=== PATIENT | male | born 1960 | race Caucasian/White ===

== ENCOUNTER 2020-01-27 10:12 | Inpatient (IN) | payer OTHER, SELFPAY ==
[~2020-01-27 10:12] MED LIST: Iopamidol-370 76% 500 ML 1 ML ONE
[2020-01-27] MEDS ORDERED: Ondansetron PF 4 MG/2 ML Vial ONE (10:52)
[2020-01-27 11:33] LABS: #Eosinphils 0.3 thou/uL (0.0-0.7); #Lymphocytes 1.5 thou/uL (1.20-3.40); #Monocytes 0.9 thou/uL (0.11-0.59); #Neutrophils 5.6 thou/uL (1.40-6.50); %Basophils 0.3 % (0.0-1.0); %Eosinophils 3.8 % (0.0-10.0); %Lymphocytes 18.2 % (21.0-51.0); %Monocytes 10.9 % (0.0-10.0); %Neutrophils 66.7 % (42.0-75.0); Hemoglobin 10.8 g/dL (14.0-18.0); Mean Corpuscular HGB CONC 31.1 g/dL (32.0-36.0); Mean Corpuscular Hemoglobin 28.3 pg (27.0-31.0); Mean Corpuscular Volume 90.9 fL (78.0-98.0); Mean Platelet Volume 8.1 fL (7.4-10.4); Platelet Count 362 thou/uL (130-400); RBC Distribution Width 14.3 % (11.5-14.5); Red Blood Cell (RBC) Count 3.83 mill/uL (4.70-6.10); White Blood Cell (WBC) Count 8.4 thou/uL (4.8-10.8)
--- NOTE | 2020-01-27 11:38 | RAD ---
CHEST 1 VIEW: Date: 01/27/2020 INDICATION: History of diarrhea. FINDINGS: Lungs are clear. There are vascular calcifications involving the aortic arch. No pleural effusion or pneumothorax evident. No acute osseous abnormality is evident. IMPRESSION: No acute cardiopulmonary abnormality. POS: BH
[2020-01-27 12:31] LABS: ALT (SGPT) 53 U/L (8-55); AST (SGOT) 35 U/L (5-34); Albumin 3.3 g/dL (3.5-5.0); Alkaline Phosphatase 72 U/L (40-110); Anion Gap 16 mmol/L (10-20); BUN (Urea Nitrogen) 42 mg/dL (8.4-25.7); Bilirubin, Total 0.5 mg/dL (0.2-1.2); Calc. Creatinine Clearance 0 mL/min (70-130); Calcium 9.2 mg/dL (7.8-10.44); Carbon Dioxide 22 mmol/L (22-29); Chloride 106 mmol/L (98-107); Estimated GFR-MDRD 58; Globulin 3.9 g/dL (2.4-3.5); Glucose 164 mg/dL (70-105); Potassium 4.7 mmol/L (3.5-5.1); Protein, Total 7.2 g/dL (6.0-8.3); Sodium 139 mmol/L (136-145)
--- NOTE | 2020-01-27 13:10 | PDOC.FPRHP ---
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 He traveled from [place] to move in with niece over the last two days. He reports eating hot dog from convenient store and some beans that made him feel uneasy. Otherwise, no change in diet. Dizziness onset noticed upon standing, reports improvement since IVF here but still present. He denies fever , abd pain, hematochezia, melena. He reports 1 episode of n/v. Of note, he has R sided gaze, since CVA and reports possible worsening today but niece reports at baseline. ED Course: Patient received 30mg/kg bolus NS and 4mg Zofran in the ED. - History PMHx: Hep C, HTN, Peptic Ulcer, Hx of CVA, Hx of IV drug use and alcoholism PSHx: L shoulder FHx: non-contributory Social: denies current tobacco use, alcohol use, and drug use. Hx of IV drug use and alcohol abuse. Currently living with niece. Recently discharged from SNF after CVA and COVID19 admission in [place]. - Review of Systems General: denies: fever/chills Eyes: reports: vision changes. denies: eye pain ENT: denies: nasal congestion, rhinorrhea Respiratory: reports: shortness of breath (at baseline). denies: cough, congestion, exercise intolerance Cardiovascular: denies: chest pain, palpitation, edema, paroxysmal nocturnal dyspnea Gastrointestinal: reports: nausea, vomiting, diarrhea. denies: constipation, abdominal pain, GI bleeding Genitourinary: denies: incontinence, dysuria, polyuria Skin: denies: rashes, lesions Musculoskeletal: denies: pain, tenderness, stiffness Neurological: reports: numbness (at baseline). denies: syncope, weakness Psychological: denies: anxiety, depression - Vital signs BP 89/46, MAP 60, repeat in room 120/89, P69, R12, T97.4, O2 95%RA, Wt 79kg - Physical Exam Constitutional: NAD, awake, alert and oriented, well developed HEENT: normocephalic and atraumatic -HEENT: R sided gaze, EOM impaired, dry MM Neck: supple, no LAD Chest: no-tender to palpation, no lesions Heart: RRR, normal S1/S2, no murmurs/rubs/gallops, pulses present, no edema Lungs: CTAB, no respiratory distress, good air movement Abdomen: soft, non-tender, bowel sounds present, no masses/distention -Abdomen: hyperactive BS Musculoskeletal: normal structure -Neurological: L sided decreased sensation in UE and LE, RLE 4/5 sterngth, otherwise all other extremities 5/5 Skin: no rash/lesions, good turgor Heme/Lymphatic: no unusual bruising or bleeding Psychiatric: normal mood and affect FMR H&P: Results - Labs Result Diagrams: 01/28/20 05:05 01/28/20 05:05 Lab results: WBC 8.4 thou/uL (4.8-10.8) 01/27/20 10:35 Hgb 10.8 g/dL (14.0-18.0) L 01/27/20 10:35 Hct 34.8 % (42.0-52.0) L 01/27/20 10:35 MCV 90.9 fL (78.0-98.0) 01/27/20 10:35 Plt Count 362 thou/uL (130-400) 01/27/20 10:35 Neutrophils % 66.7 % (42.0-75.0) 01/27/20 10:35 Sodium 139 mmol/L (136-145) 01/27/20 10:35 Potassium 4.7 mmol/L (3.5-5.1) 01/27/20 10:35 Chloride 106 mmol/L (98-107) 01/27/20 10:35 Carbon Dioxide 22 mmol/L (22-29) 01/27/20 10:35 BUN 42 mg/dL (8.4-25.7) H 01/27/20 10:35 Creatinine 1.27 mg/dL (0.7-1.3) 01/27/20 10:35 Glucose 164 mg/dL (70-105) H 01/27/20 10:35 Lactic Acid 4.0 mmol/L (0.5-2.2) H 01/27/20 10:35 Calcium 9.2 mg/dL (7.8-10.44) 01/27/20 10:35 Total Bilirubin 0.5 mg/dL (0.2-1.2) 01/27/20 10:35 AST 35 U/L (5-34) H 01/27/20 10:35 ALT 53 U/L (8-55) 01/27/20 10:35 Alkaline Phosphatase 72 U/L (40-110) 01/27/20 10:35 Serum Total Protein 7.2 g/dL (6.0-8.3) 01/27/20 10:35 Albumin 3.3 g/dL (3.5-5.0) L 01/27/20 10:35 - Radiology Interpretation CT scan - abdomen Status: image reviewed by me, report reviewed by me (No acute findings) Chest x-ray Status: image reviewed by me, report reviewed by me (no acute findings) FMR H&P: A/P - Problem List (1) Severe dehydration Current Visit: Yes Status: Acute Code(s): E86.0 - DEHYDRATION (2) Lactic acidosis Current Visit: Yes Status: Acute Code(s): E87.2 - ACIDOSIS (3) Hepatitis C Current Visit: Yes Status: Acute Code(s): B19.20 - UNSPECIFIED VIRAL HEPATITIS C WITHOUT HEPATIC COMA (4) HTN (hypertension) Current Visit: Yes Status: Acute Code(s): I10 - ESSENTIAL (PRIMARY) HYPERTENSION (5) History of CVA (cerebrovascular accident) Current Visit: Yes Status: Acute Code(s): Z86.73 - PRSNL HX OF TIA (TIA), AND CEREB INFRC W/O RESID DEFICITS (6) Normocytic anemia Current Visit: Yes Status: Acute Code(s): D64.9 - ANEMIA, UNSPECIFIED (7) Hyperglycemia Current Visit: Yes Status: Acute Code(s): R73.9 - HYPERGLYCEMIA, UNSPECIFIED - Plan Severe Dehydration 2/2 Diarrheal Illness with Lactic Acidosis: -no s/sx of sepsis at this point. WBC wnl, no fever reported, pulse rate wnl -CT abd wnl -in the process of 30mg/kg bolus in ED, BP improved, will continue to monitor and reassess after IVF complete -LA 4.0, continue to trend -Cdiff toxin and Ag studies collected in ED -additional stool cx pending Hyperglycemia: -unsure of any hx of DM, will continue to trend Normocytic Anemia: -Hgb 10.8 and likely hemoconcentrated d/t hypovolemic state -Fe studies, Folate, B12 and FOBT pending -hx of gastric ulcer 12/02, will give protonix Hx of CVA: -residual EOM deficit, L sided sensation deficit and R sided weakness -daily ASA and plavix -continue statin Chronic Hep C, untreated: -will need outpt f/u HTN: -hold home lisinopril for now with hypotension. Dispo: place in observation, LOS likely <48h DVT PPx: SCDs GI PPx: Protonix Addendum - Attending - Attending Attestation Date/Time: 01/28/20 0810 I personally evaluated the patient and discussed the management with Dr. Deluna. I agree with the History, Examination, Assessment and Plan documented above with any addition or exceptions noted below. See my event note for details.
--- NOTE | 2020-01-27 13:29 | CT ---
CT abdomen and pelvis with IV contrast HISTORY: Abdomen pain. Diarrhea. FINDINGS: Small hiatal hernia. Left liver lobe is diffusely hypodense compared to the right. No evidence of bowel obstruction or inflammation. Stomach is markedly distended with fluid and partic ulate matter. Prominent calcification throughout the arterial structures with likely stenoses at the common iliac a rteries. Inferior most images partially show fluid in the right side of the scrotum. 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 IMPRESSION : No acute bowel abnormalities are demonstrated to explain the symptoms. Small hiatal hernia. Hepato-steatosis. Prominent atherosclerosis. Probable right hydrocele. Bilateral spondylolysis at the lumbosacral junction with minimal spondylolisthesis.
[2020-01-27 14:04] LABS: Bilirubin Negative (Negative); Blood, Urine Negative (Negative); Clarity Clear (Clear); Glucose, Urine (Dipstick) 30 mg/dL (Negative); Leukocyte Negative Leu/uL (Negative); Nitrite Negative (Negative); Protein, Urine (Dipstick) Negative (Neg-Trace); Urobilinogen Normal mg/dL (Less than 2)
--- NOTE | 2020-01-27 16:17 | PDOC.EVN ---
Event Note - Event Note Event Note: Case discussed and reviewed. Recently moved from [place] from rehab facility to live with family and complete home PT. Had AMS this morning and BP was low. Multiple bouts of diarrhea today. Exam unremarkable. Labs show elevated lactic acid. CT negative. Observation for hypotension, volume depletion, and diarrhea. Has received 3L so far. Keep on LR 120 mL/hr. Stool studies pending. Obs, medical, < 2 midnights.
[2020-01-27 17:30] LABS: Lactic Acid 2.8 mmol/L (0.5-2.2)
[2020-01-27] MEDS: Lactated Ringer's 1,000 ML IV SCH (17:40)
[2020-01-27 17:44] LABS: Iron 134 ug/dL (65-175); Iron Binding Capacity, Total 209 mcg/dL (261-462)
[2020-01-28] MEDS: Lactated Ringer's 1,000 ML IV SCH (01:24)
[2020-01-28 05:30] LABS: #Eosinphils 0.1 thou/uL (0.0-0.7); #Lymphocytes 2.3 thou/uL (1.20-3.40); #Neutrophils 4.8 thou/uL (1.40-6.50); %Basophils 0.5 % (0.0-1.0); %Eosinophils 1.5 % (0.0-10.0); %Lymphocytes 27.9 % (21.0-51.0); %Monocytes 12.2 % (0.0-10.0); Hemoglobin 7.4 g/dL (14.0-18.0); Mean Corpuscular HGB CONC 33.4 g/dL (32.0-36.0); Mean Corpuscular Hemoglobin 29.9 pg (27.0-31.0); Mean Corpuscular Volume 89.4 fL (78.0-98.0); Mean Platelet Volume 7.8 fL (7.4-10.4); Platelet Count 253 thou/uL (130-400); RBC Distribution Width 14.2 % (11.5-14.5); Red Blood Cell (RBC) Count 2.47 mill/uL (4.70-6.10); White Blood Cell (WBC) Count 8.3 thou/uL (4.8-10.8)
[2020-01-28 05:48] LABS: Anion Gap 10 mmol/L (10-20); BUN (Urea Nitrogen) 50 mg/dL (8.4-25.7); Calc. Creatinine Clearance 102 mL/min (70-130); Calcium 8.5 mg/dL (7.8-10.44); Carbon Dioxide 25 mmol/L (22-29); Chloride 108 mmol/L (98-107); Estimated GFR-MDRD 90; Glucose 98 mg/dL (70-105); Potassium 4.1 mmol/L (3.5-5.1); Sodium 139 mmol/L (136-145)
--- NOTE | 2020-01-28 07:02 | PDOC.FM ---
- Subjective Subjective: Pt feels better today. He has no had a BM since yesterday. He denies fever, chills. He has discomfort in his throat. This has been on-going for a few days. He denies blood in his BM. He is unsure why he initially had EGD when an ulcer was documented. - Objective Vital Signs & Weight: Vital Signs (12 hours) Temp Pulse Resp BP Pulse Ox 01/28/20 04:00 98.7 F 93 20 109/71 96 01/28/20 03:00 99.5 F 106 H 18 110/63 98 01/27/20 23:41 99.5 F 106 H 20 110/63 98 01/27/20 20:00 98.7 F 102 H 18 120/72 98 Weight Weight 79.152 kg I&O: 01/27/20 01/28/20 01/29/20 06:59 06:59 06:59 Intake Total 1440 Output Total 1300 Balance 140 Result Diagrams: 01/28/20 12:03 01/28/20 05:05 Phys Exam - Physical Examination Constitutional: NAD HEENT: PERRLA, moist MMs Respiratory: no wheezing, clear to auscultation bilateral Cardiovascular: RRR, no significant murmur Gastrointestinal: soft, non-tender, no distention Musculoskeletal: no edema, pulses present Neurological: moves all 4 limbs Psychiatric: normal affect, A&O x 3 Skin: no rash, cap refill <2 seconds Dx/Plan (1) HTN (hypertension) Code(s): I10 - ESSENTIAL (PRIMARY) HYPERTENSION Status: Acute (2) Hepatitis C Code(s): B19.20 - UNSPECIFIED VIRAL HEPATITIS C WITHOUT HEPATIC COMA Status: Acute (3) History of CVA (cerebrovascular accident) Code(s): Z86.73 - PRSNL HX OF TIA (TIA), AND CEREB INFRC W/O RESID DEFICITS Status: Acute (4) Hyperglycemia Code(s): R73.9 - HYPERGLYCEMIA, UNSPECIFIED Status: Acute (5) Lactic acidosis Code(s): E87.2 - ACIDOSIS Status: Acute (6) Normocytic anemia Code(s): D64.9 - ANEMIA, UNSPECIFIED Status: Acute (7) Severe dehydration Code(s): E86.0 - DEHYDRATION Status: Acute - Plan Plan: Normocytic Anemia: -Hgb 7.4 -Fe studies fairly normal, Folate, B12 and FOBT pending. Melenotic appearance to stool on MARC. -hx of gastric ulcer 12/02, will give protonix. Having difficulty swallowing. Possibly 2/2 gastric ulcer. Swallow study pending as well. Will start on iron supplementation. Will need to consider EGD for upper GI bleed. Repeat H/H this afternoon. Severe Dehydration 2/2 Diarrheal Illness with Lactic Acidosis: - vital signs improved, symptoms improved regarding hypotension - pending stool studies - stool was not sent from ER so will need to collect this am. Has not had one since he left the emergency department. Hyperglycemia: -unsure of any hx of DM, will continue to trend Hx of CVA: -residual EOM deficit, L sided sensation deficit and R sided weakness -daily ASA and plavix -continue statin Chronic Hep C, untreated: -will need outpt f/u HTN: -restarted lisinopril Dispo: pending work up but obs for now DVT PPx: SCDs GI PPx: Protonix Diet: NPO Addendum - Attending - Attending Attestation Date/Time: 01/28/20 1559 I personally evaluated the patient and discussed the management with Dr. Preciado. I agree with the History, Examination, Assessment and Plan documented above with any addition or exceptions noted below. repeat H&H <7. Tx 1 u PRBC and call GI.
[2020-01-28] MEDS ORDERED: Multivitamin W/ Minerals 1 TAB PO SCH (09:00)
[2020-01-28] MEDS ORDERED: Lisinopril 5 MG TAB PO SCH (09:00)
[2020-01-28] MEDS ORDERED: Sucralfate 1 GM TAB PO SCH (10:45)
[2020-01-28 12:14] LABS: Hemoglobin 6.8 g/dL (14.0-18.0)
[2020-01-28] MEDS: Sucralfate 1 GM TAB PO SCH ×2 (15:38→17:31)
[2020-01-28] MEDS ORDERED: Atorvastatin Calcium 40 MG TAB PO SCH (21:00)
--- NOTE | 2020-01-28 21:39 | CON ---
DATE OF CONSULTATION: 01/28/2020 CHIEF COMPLAINT: Anemia and weakness. HISTORY OF PRESENT ILLNESS: Mr. Harvey is a 59-year-old man, who had a stroke back in October when he was living up in [place]. He has had residual weakness and was transferred to a senior living/rehab after that. About a week ago, he drove down to [place] to live with his niece for further care. he had an infection with COVID-19, which he recovered from and tested negative twice. He underwent endoscopy and reportedly was found to have a peptic ulcer. However, I do not have confirmation with the procedure report. While he was driving down, he ate a hot dog and felt like it scratched his throat on the way down and since then he has had some discomfort at the lower cervical level while eating. Few days ago, he developed acute diarrhea with multiple liquidy stools per day. He presented to the ER yesterday with dehydration and weakness and dizziness. He has seen no red blood in the stool. He was noted to have some black stools. GI was consulted to evaluate that. PAST MEDICAL HISTORY: Hepatitis C, hypertension, stroke, peptic ulcer, prior history of drug abuse and alcohol abuse. PAST SURGICAL HISTORY: Shoulder surgery and EGD. He has never had a colonoscopy. FAMILY HISTORY: Negative for GI malignancies. SOCIAL HISTORY: No recent alcohol, tobacco, or drugs. He did have a prior history of IV drug abuse and alcohol abuse. ALLERGIES: NO KNOWN DRUG ALLERGIES. MEDICATIONS: Currently include: 1. Multiple vitamin with iron. 2. Atorvastatin. 3. Albuterol. 4. Lisinopril. 5. Pantoprazole. 6. Sucralfate. 7. Prior to admission, he was on clopidogrel and aspirin. REVIEW OF SYSTEMS: Negative x10 systems reviewed except as stated in the history of present illness. PHYSICAL EXAMINATION: VITAL SIGNS: Temperature 97.7, pulse 72, blood pressure 109/69. GENERAL: He is in no acute distress. Alert and oriented x3. Slurs his words to some degree. HEENT: Eyes have no scleral icterus. Oropharynx is clear without lesions. No cervical or supraclavicular lymphadenopathy. LUNGS: Clear to auscultation bilaterally. HEART: Regular rate and rhythm without murmur. ABDOMEN: Soft, nontender, and nondistended. Bowel sounds are present. RECTAL: Reveals firm stool in the rectal vault, however, it is black. EXTREMITIES: No lower extremity edema. LABORATORY DATA: White blood cell count 8.3, hemoglobin 6.8 today down from 10.8 yesterday, platelets 253 . Creatinine 0.87 with a BUN of 50. Iron 134, TIBC 206, ferritin 287, B12 of 502, folate 16.4, bilirubin 0.5, AST 35, ALT 53, alkaline phosphatase 72, albumin 3.3. IMPRESSION: 1. Dehydration and symptomatic anemia on presentation. Some of the drop in his hemoglobin could have been due to rehydration. However, he does have a history of peptic ulcer and on rectal exam, now he has black firm stool. His BUN was significantly elevated compared to his creatinine on presentation, which could also indicate an upper gastrointestinal bleed. His iron studies are most consistent with anemia of chronic disease with a ferritin of 287, iron of 134, and TIBC of 209. He likely has multifactorial process going on. 2. Anemia of acute blood loss. 3. Anemia of chronic disease. 4. Recent history of peptic ulcer by upper endoscopy reportedly. 5. History of hepatitis C, untreated. 6. Recent stroke. He had been on aspirin and Plavix, which appeared to be currently held. RECOMMENDATIONS: 1. We will plan upper endoscopy tomorrow. 2. Stop the vitamin with iron. 3. Stop sucralfate. 4. Follow the trend of his hemoglobin. He did receive blood transfusion 1 unit today. 5. Further evaluation of his hepatitis C and also evaluation for lower endoscopy can be considered in the future as an outpatient. Job ID: [id number]
[2020-01-28 22:40] LABS: Hemoglobin 8.4 g/dL (14.0-18.0)
[2020-01-29 05:28] LABS: #Basophils 0.1 thou/uL (0.0-0.2); #Eosinphils 0.3 thou/uL (0.0-0.7); #Lymphocytes 1.8 thou/uL (1.20-3.40); #Monocytes 0.8 thou/uL (0.11-0.59); #Neutrophils 4.3 thou/uL (1.40-6.50); %Basophils 0.9 % (0.0-1.0); %Eosinophils 4.5 % (0.0-10.0); %Lymphocytes 25.1 % (21.0-51.0); %Monocytes 11.3 % (0.0-10.0); %Neutrophils 58.2 % (42.0-75.0); Hemoglobin 7.9 g/dL (14.0-18.0); Mean Corpuscular HGB CONC 32.5 g/dL (32.0-36.0); Mean Corpuscular Hemoglobin 29.1 pg (27.0-31.0); Mean Corpuscular Volume 89.6 fL (78.0-98.0); Mean Platelet Volume 7.3 fL (7.4-10.4); Platelet Count 258 thou/uL (130-400); RBC Distribution Width 13.8 % (11.5-14.5); Red Blood Cell (RBC) Count 2.72 mill/uL (4.70-6.10); White Blood Cell (WBC) Count 7.3 thou/uL (4.8-10.8)
[2020-01-29 05:46] LABS: Anion Gap 11 mmol/L (10-20); BUN (Urea Nitrogen) 29 mg/dL (8.4-25.7); Calc. Creatinine Clearance 98 mL/min (70-130); Calcium 8.3 mg/dL (7.8-10.44); Carbon Dioxide 26 mmol/L (22-29); Chloride 105 mmol/L (98-107); Estimated GFR-MDRD 85; Glucose 103 mg/dL (70-105); Potassium 3.6 mmol/L (3.5-5.1); Sodium 138 mmol/L (136-145)
--- NOTE | 2020-01-29 07:21 | PDOC.FM ---
- Subjective Subjective: Improved from admission. He does not have any complaints other than not sleeping well overnight. He has had a solid BM w/o diarrhea. He denies blood per rectum. He is currently NPO. Improvement of reflux. - Objective Vital Signs & Weight: Vital Signs (12 hours) Temp Pulse Resp BP Pulse Ox 01/29/20 04:30 98 F 73 17 108/66 98 01/29/20 04:00 98 01/29/20 00:24 98.6 F 78 16 97/72 98 01/28/20 20:06 97.7 F 72 17 109/69 97 01/28/20 20:00 97 Weight Weight 79.152 kg I&O: 01/28/20 01/29/20 01/30/20 06:59 06:59 06:59 Intake Total 1440 350 Output Total 1300 350 Balance 140 0 Result Diagrams: 01/29/20 05:03 01/29/20 05:03 Phys Exam - Physical Examination Constitutional: NAD HEENT: PERRLA, moist MMs Respiratory: no wheezing, clear to auscultation bilateral Cardiovascular: RRR, no significant murmur Gastrointestinal: soft, non-tender, no distention Musculoskeletal: no edema, pulses present Neurological: moves all 4 limbs decreased sensation on L side Psychiatric: normal affect, A&O x 3 Skin: no rash, cap refill <2 seconds Dx/Plan (1) HTN (hypertension) Code(s): I10 - ESSENTIAL (PRIMARY) HYPERTENSION Status: Acute (2) Hepatitis C Code(s): B19.20 - UNSPECIFIED VIRAL HEPATITIS C WITHOUT HEPATIC COMA Status: Acute (3) History of CVA (cerebrovascular accident) Code(s): Z86.73 - PRSNL HX OF TIA (TIA), AND CEREB INFRC W/O RESID DEFICITS Status: Acute (4) Hyperglycemia Code(s): R73.9 - HYPERGLYCEMIA, UNSPECIFIED Status: Acute (5) Lactic acidosis Code(s): E87.2 - ACIDOSIS Status: Acute (6) Normocytic anemia Code(s): D64.9 - ANEMIA, UNSPECIFIED Status: Acute (7) Severe dehydration Code(s): E86.0 - DEHYDRATION Status: Acute - Plan Plan: # Normocytic Anemia: -Hgb 7.4 -> 6.8. Transfused 1 U of pRBC. Repeat Hgb 8.4 -> 7.9. -Fe, Folate, B12 studies normal, FOBT negative. Melenotic appearance to stool on MARC. -hx of gastric ulcer 12/02, will give protonix. Having difficulty swallowing. Possibly 2/2 gastric ulcer. - GI consulted, EGD today. Appreccate recs. # Severe Dehydration 2/2 Diarrheal Illness with Lactic Acidosis - resolved # Hyperglycemia: -unsure of any hx of DM, will continue to trend # Hx of CVA: -residual EOM deficit, L sided sensation deficit and R sided weakness -daily ASA and plavix held due to possible GI bleed -continue statin # Chronic Hep C, untreated: -will need outpt f/u # HTN: -held lisinopril Dispo: pending work up but obs for now DVT PPx: SCDs GI PPx: Protonix Diet: NPO Addendum - Attending - Attending Attestation Date/Time: 01/29/20 7819 I personally evaluated the patient and discussed the management with Dr. Preciado. I agree with the History, Examination, Assessment and Plan documented above with any addition or exceptions noted below. EGD today. dispo pending GI recs.
[2020-01-29] MEDS ORDERED: PROPOFOL 200 MG/20 ML VIAL ONE (11:05)
[2020-01-29] MEDS ORDERED: Meperidine HCl/PF 25 MG/ML VIAL SLOW IVP PRN (12:11)
[2020-01-29] MEDS ORDERED: Ketorolac Tromethamine 30 MG/ML VIAL IVP PRN (12:11)
[2020-01-29] MEDS ORDERED: Promethazine HCl 25 MG/ML VIAL SLOW IVP PRN (12:11)
[2020-01-29] MEDS ORDERED: Ondansetron HCl/PF 4 MG/2 ML Vial IVP PRN (12:11)
[2020-01-29] MEDS ORDERED: HYDROmorphone 2 MG/ML VIAL SLOW IVP PRN (12:11)
[2020-01-29] MEDS ORDERED: Promethazine HCl 25 MG/ML VIAL IM PRN (12:11)
[2020-01-29 12:45] VITALS: BMI 22.9
--- NOTE | 2020-01-29 15:35 | OP ---
DATE OF PROCEDURE: 01/29/2020 PROCEDURE PERFORMED: Esophagogastroduodenoscopy, diagnostic. INDICATIONS: 1. Melena. 2. Acute blood loss anemia, stabilized now. MEDICATIONS: See Anesthesia record. FINDINGS: After discussion of the risks, benefits, and alternatives of the procedure, informed consent was obtained and witnessed. Pre-endoscopic cardiopulmonary examination was satisfactory. Time-out was performed before sedation was achieved. Sedation was achieved with Anesthesia assistance in the Endoscopy Unit. A Pentax adult upper endoscope was placed into the oropharynx and passed through the cricopharyngeus under direct visualization. The esophageal mucosa appeared normal in the proximal and mid esophagus. There was no evidence of any esophageal varices. In the very distal esophagus at the GE junction, there are two medium-sized ulcerations. These are shallow and clean based. There was no active bleeding or high-risk stigmata for rebleeding. This was at 39 cm from the incisors. Beyond this, there was a small sliding hiatal hernia measuring about 2 cm. The endoscope was advanced beyond this area and into the stomach. Forward and retroflexed views of the entire gastric mucosa were obtained. The gastric mucosa appears otherwise unremarkable. There was no evidence of any old blood or active bleeding or any bleeding lesions. The endoscope was advanced through the pylorus and into the first and second portions of the duodenum, which also appeared normal. The upper endoscope was then completely withdrawn and the patient allowed to recover. The patient tolerated the procedure well. There were no immediate postprocedure complications. IMPRESSION: 1. Two shallow esophageal ulcers at the GE junction, with no active bleeding, no high-risk stigmata for rebleeding. 2. Small hiatal hernia. 3. Otherwise, normal esophagus. 4. Otherwise, normal stomach. 5. Normal duodenum. 6. No old blood or active bleeding. RECOMMENDATION: 1. Twice daily oral proton pump inhibitor for the next 2 months, then decrease to once daily dosing and continue indefinitely. 2. Advance diet. GI will sign off. Please call back if needed. Job ID: [id number]
[2020-01-29 16:04] VITALS: BP 117/75; TEMP 98.1
[2020-01-29 19:12] LABS: RBC Folate Test Component 1914 ng/mL (>498)
--- NOTE | 2020-01-30 13:42 | DIS ---
DATE OF ADMISSION: 01/27/2020 DATE OF DISCHARGE: 01/29/2020 RESIDENT: Luis Miguel Preciado DO ADMITTING ATTENDING: Pérez Hernandez MD DISCHARGE ATTENDING: Pérez Hernandez MD CONSULT: Enoc Gillis MD, GI. PROCEDURES: 1. Chest x-ray on 01/27/2020 revealed no acute cardiopulmonary abnormality. 2. Abdomen and pelvis CT on 01/27/2020 revealed no acute bowel abnormalities demonstrated. Small hiatal hernia present. Hepatosteatosis. Prominent atherosclerosis. Probable right hydrocele. Bilateral spondylosis at the lumbosacral junction with minimal spondylolisthesis. 3. Esophagogastroduodenoscopy on 01/29/2020, revealed two shallow esophageal ulcers at the gastroesophageal junction with no active bleeding. High risk stigmata of rebleeding. Small hiatal hernia. Normal esophagus, normal stomach, and normal duodenum. No old or active bleeding. PRIMARY DIAGNOSES: 1. Severe dehydration. 2. Lactic acidosis. 3. Melena. 4. Esophageal ulcers. 5. Normocytic anemia. SECONDARY DIAGNOSES: 1. No primary care provider. 2. Hypertension. 3. Chronic hepatitis C. 4. History of cerebrovascular accident. 5. Hypoglycemia. DISCHARGE MEDICATIONS: 1. DuoNebs inhaled t.i.d. p.r.n. shortness of breath. 2. Cerovite one tablet p.o. daily. 3. Clopidogrel 75 mg p.o. daily. 4. Atorvastatin 80 mg p.o. at bedtime. 5. Lisinopril 5 mg p.o. daily. 6. Protonix 40 mg p.o. b.i.d. DISCONTINUED MEDICATIONS: 1. Senexon one tablet p.o. b.i.d. 2. Aspirin 81 mg p.o. daily. HPI/HOSPITAL COURSE: Linda Harvey is a 59-year-old gentleman, who presented to the Emergency Department with severe diarrhea and dehydration, which initially was suspected to be secondary to diarrheal illness. He stated that he had 4 or 5 bowel movements in the morning he woke up on admission. He does have history of traveling from [place] to [place] and he had a hot dog that made him feel unwell. He also had a history of an EGD done in November of 2019, which revealed esophageal ulcers. He was supposed to be taking Protonix, but he was not. He was also on antiplatelet medications. He was resuscitated with fluids and a repeat CBC revealed hemoglobin of 7.4, which downtrended to 6.8, prompting a GI consult. Of note, a MARC exam did reveal what appeared to be melenic stool. The patient had an EGD performed, which revealed esophageal ulcers, but did not show any evidence of bleeding. His hemoglobin and hematocrit remained stable after receiving 1 unit of packed red blood cells. He was discharged with discontinuation of the aspirin. The patient was instructed to continue Protonix 40 mg p.o. b.i.d. to prevent progression of the esophageal ulcers. The patient is from [place], where he lives in a [facility] since a CVA in October of 2019 caused left-sided numbness without any motor loss. He was in rehab for a few months and then at this time, he is jeannine COVID, but subsequently had 2 negative COVID tests. He is now living in [place] with his niece, where he attempts to have a productive life and stay away from tobacco and drugs. He has IV drug use history and alcohol. He also does have hepatitis C and will need to see GI in the outpatient setting for treatment. He does not have a colonoscopy performed at this point, which he can have done in the outpatient setting. DISPOSITION: Stable. DISCHARGE INSTRUCTIONS: 1. Location: [facility]. 2. Diet: Heart healthy. 3. Activity: Ad ellen. 4. Follow up with establish care with a primary care provider. 5. Follow up with GI in the next 14 days. Job ID: [id number] MTDD
--- NOTE | 2020-02-01 14:51 | EKG ---
Test Reason : Blood Pressure : / mmHG Vent. Rate : 075 BPM Atrial Rate : 075 BPM P-R Int : 124 ms QRS Dur : 088 ms QT Int : 420 ms P-R-T Axes : 070 002 087 degrees QTc Int : 469 ms Normal sinus rhythm Normal ECG Confirmed by NADJA CUEVAS ([id number]), newspaper editor NAYELY BELL ([id number]) on 02/01/2020 2:50:28 PM Referred By: Confirmed By:NADJA CUEVAS
== END 2020-01-29 16:57 | disposition home or self-care (01) | DRG 378 ==
LOC: ERS 10:12 → OBSVTOIN 14:23 → INTOOBSV 14:23 → T4-A 14:23
PROVIDERS: ADMIT Family Medicine; ATTEND Family Medicine
PROC: 0DJ08ZZ Inspection of Upper Intestinal Tract, Via Natural or Artificial Opening Endoscopic (ICD-10-PCS; principal; 2020-01-29)
DX: K92.1 Melena (principal); E87.2 Acidosis; D62 Acute posthemorrhagic anemia; E86.0 Dehydration; K44.9 Diaphragmatic hernia without obstruction or gangrene; K76.89 Other specified diseases of liver; N43.3 Hydrocele, unspecified; M47.897 Other spondylosis, lumbosacral region; I10 Essential (primary) hypertension; R73.9 Hyperglycemia, unspecified; D63.8 Anemia in other chronic diseases classified elsewhere; F10.10 Alcohol abuse, uncomplicated; E16.2 Hypoglycemia, unspecified; F17.210 Nicotine dependence, cigarettes, uncomplicated; B18.2 Chronic viral hepatitis C; Z87.11 Personal history of peptic ulcer disease; Z86.73 Personal history of transient ischemic attack (TIA), and cerebral infarction without residual deficits
CPT/HCPCS: 36415; 36430; 71045; 74177; 80048; 80053; 81003; 82274; 82607; 82728; 82746; 82747; 83540; 83550; 83605; 83630; 83690; 85025; 86850; 86900; 86901; 87045; 87046; 87328; 87329; 87427; 87449; 93005; 96360; 96361; 96374; J2405; J2704; P9016; Q9967

== ENCOUNTER 2020-01-30 14:14 | Inpatient (IN) | payer SELFPAY ==
[2020-01-30 14:56] LABS: Mean Corpuscular HGB CONC 33.9 g/dL (32.0-36.0); Mean Corpuscular Volume 88.6 fL (78.0-98.0); Mean Platelet Volume 7.8 fL (7.4-10.4); Platelet Count 333 thou/uL (130-400); RBC Distribution Width 14.6 % (11.5-14.5); Red Blood Cell (RBC) Count 2.99 mill/uL (4.70-6.10); White Blood Cell (WBC) Count 6.6 thou/uL (4.8-10.8)
--- NOTE | 2020-01-30 15:08 | CT ---
CT BRAIN WITHOUT CONTRAST: 01/30/20 HISTORY: Level II stroke, right arm numbness, right facial droop, right facial numbness. FINDINGS: There are small old infarctions in the right parieto-occipital lobe in the right cerebellar hemispher e. No evidence of acute infarct, hemorrhage, midline shift, or abnormal extra-axial fluid collections are seen. The ventricular size is appropriate and the basilar cisterns patent. The bony calvarium i s intact. The visualized paranasal sinuses and mastoid air cells are well aerated. IMPRESSION: No CT evidence of acute intracranial process. Discussed over the telephone with ER physician, Dr. Meena Rodriguez at 2:38 p.m. POS: GAVIN
[2020-01-30 15:12] LABS: PTT 27.4 sec (22.9-36.1); Prothrombin Time 12.8 sec (12.0-14.7)
[2020-01-30 15:15] LABS: Anisocytosis SLIGHT = 6-15 cells (100X) (0-5/hpf); Band 2 % (5-11); Eosinophils 4 % (0-10); Lymphocytes 29 % (21-51); MDiff Complete? YES; Monocytes 15 % (0-10); Neutrophil 50 % (42-75); Platelet Morphology Comment Appears Adequate; Polychromasia MODERATE = 3-4 cells (100X) (0-2/hpf); Target Cells SLIGHT = 2-5 cells (100X) (0-1/hpf)
[2020-01-30 15:18] LABS: ALT (SGPT) 126 U/L (8-55); AST (SGOT) 89 U/L (5-34); Albumin 3.6 g/dL (3.5-5.0); Alkaline Phosphatase 72 U/L (40-110); Anion Gap 13 mmol/L (10-20); BUN (Urea Nitrogen) 15 mg/dL (8.4-25.7); Bilirubin, Total 0.3 mg/dL (0.2-1.2); Calc. Creatinine Clearance 0 mL/min (70-130); Calcium 8.8 mg/dL (7.8-10.44); Carbon Dioxide 24 mmol/L (22-29); Chloride 106 mmol/L (98-107); Estimated GFR-MDRD 69; Globulin 3.3 g/dL (2.4-3.5); Glucose 117 mg/dL (70-105); Protein, Total 6.9 g/dL (6.0-8.3); Sodium 139 mmol/L (136-145)
[2020-01-30] MEDS ORDERED: Aspirin Chewable 81 MG TAB ONE (15:40)
[2020-01-30] MEDS ORDERED: Enoxaparin Sodium 80 MG/0.8 ML SYRINGE ONE (16:26)
--- NOTE | 2020-01-30 16:36 | RAD ---
CHEST ONE VIEW: 01/30/20 INDICATION: History of right sided weakness. COMPARISON: Prior exam dated 01/27/20. FINDINGS: COPD changes and mild cardiomegaly is stable appearing. No pleural effusion, pneumothorax is evident. No acute osseous abnormalities demonstrated. IMPRESSION: COPD change. Mild cardiomegaly. No evidence to suggest cardiac dysfunction. POS: [facility]
--- NOTE | 2020-01-30 16:45 | PDOC.EVN ---
Event Note - Event Note Event Note: Reviewed and discussed case w/ Dr Preciado/Mikie. Repeated exam. Presented to ER with CVA/TIA sx that started at approx 1200 today. Resolved at time of my exam. D/C from hospital yesterday with concern for UGI bleed. EGD showed nonbleeding esophageal ulcers. Exam repeated and stable from D/C. CXR and EKG reviewed by me. Labs show Trop 2, CKMB 30. Admit for NSTEMI and TIA. Continue ASA, TH lovenox. Currently on Plavix. Neuro and Cards consult. Trend trop. MRI tomorrow. Inpt, Stroke, >2 midnights.
[2020-01-30 17:01] LABS: Amphetamine Not Detected (NotDetected); Barbiturates Screen Not Detected (NotDetected); Benzodiazepine Screen Not Detected (NotDetected); Cocaine Metabolite Screen Not Detected (NotDetected); Medtox Control Line Valid? VALID (VALID); Medtox Reader # READER 4; Methadone Not Detected (NotDetected); Methamphetamine Not Detected (NotDetected); Opiate Screen Not Detected (NotDetected); Oxycodone Screen Not Detected (NotDetected); Phencyclidine (PCP) Not Detected (NotDetected); THC/Cannabinoid Screen Not Detected (NotDetected); Tricyclic Screen Not Detected (NotDetected)
--- NOTE | 2020-01-30 17:04 | PDOC.FPRHP ---
- History of Present Illness Chief Complaint: R sided numbness History of Present Illness: Pt is a 59 yo male with history of CVA w/ complete L sided numbness, anemia, HTN , HLD, esophageal ulcers who presents to the ED with R sided facial numbness noticed when he woke today around noon. He did not feel himself when he went to bed but deficits were not present. He was brought to the ED by his niece and out of the window for TPA. By our exam he no longer had R sided deficits. In he was placed in a nursing for CVA. He was diagnosed with COVID and since had 2 negative COVID swabs. Of note, he was discharged 01/29/20 for suspected GI bleed. He was found to have esophageal ulcers on EGD and started on protonix BID. His plavix was continued and ASA d/c. ED Course: In the ED he was given lovenox 1mg/kg for NSTEMI. His CT head showed chronic changes, no evidence of bleed. - Allergies/Adverse Reactions Allergies Allergy/AdvReac Type Severity Reaction Status Date / Time No Known Allergies Allergy Verified 01/30/20 20:01 - Home Medications Medication Instructions Recorded Confirmed Type Atorvastatin Calcium 80 mg PO HS 01/27/20 01/30/20 History Clopidogrel Bisulfate [Clopidogrel] 75 mg PO DAILY 01/27/20 01/30/20 History Lisinopril 5 mg PO DAILY 01/27/20 01/30/20 History Multivit with Minerals/Lutein 1 tablet PO DAILY 01/27/20 01/30/20 History [[employer]] Pantoprazole [Protonix] 40 mg PO BID #60 tab 01/29/20 01/30/20 Rx Sucralfate [Carafate] 1 gm PO QID 01/30/20 01/30/20 History - History PMHx:CVA w/ complete L sided numbness, HTN, HLD, esophageal ulcers, anemia, hep C untreated PSHx: L shoulder surgery FHx: non-contributory Social: hx of tobacco use, alcohol use, IV drug use. Denies current use. Living with niece currently. He does not have a PCP. - Review of Systems General: denies: fever/chills, weight/appetite/sleep changes Eyes: denies: eye pain, vision changes ENT: denies: nasal congestion, rhinorrhea Respiratory: denies: cough, congestion, shortness of breath Cardiovascular: denies: chest pain, palpitation, edema Gastrointestinal: denies: nausea, vomiting, diarrhea, constipation, abdominal pain, GI bleeding Genitourinary: denies: incontinence, dysuria Skin: denies: rashes, lesions Musculoskeletal: denies: pain, tenderness Neurological: reports: numbness, weakness. denies: syncope, seizure Psychological: denies: anxiety, depression - Vital signs BP: 108/60 HR: 76 RR: 16 Tmax: 98.5 Pox: 98% on RA Wt: 75.9 kg - Physical Exam Constitutional: NAD, awake, alert and oriented HEENT: normocephalic and atraumatic, PERRLA Neck: trachea midline, no JVD Heart: RRR, normal S1/S2, no edema Lungs: CTAB, no respiratory distress, no wheezing Abdomen: soft, non-tender, bowel sounds present Musculoskeletal: normal structure, normal tone Neurological: CN II-XII intact -Neurological: Normal motor function to the extremities; decreased sensation to L face/body/ extremity, R side face sensation preserved Skin: no rash/lesions, capillary refill <2 seconds Heme/Lymphatic: no purpura, no petechia Psychiatric: normal mood and affect, good judgment and insight -Psychiatric: Tearful FMR H&P: Results - Labs Result Diagrams: 01/31/20 03:55 01/31/20 03:55 Lab results: WBC 6.6 thou/uL (4.8-10.8) 01/30/20 14:18 Hgb 9.0 g/dL (14.0-18.0) L 01/30/20 14:18 Hct 26.5 % (42.0-52.0) L 01/30/20 14:18 MCV 88.6 fL (78.0-98.0) 01/30/20 14:18 Plt Count 333 thou/uL (130-400) 01/30/20 14:18 Band Neuts % (Manual) 2 % (5-11) L 01/30/20 14:18 Sodium 139 mmol/L (136-145) 01/30/20 14:18 Potassium 4.0 mmol/L (3.5-5.1) 01/30/20 14:18 Chloride 106 mmol/L (98-107) 01/30/20 14:18 Carbon Dioxide 24 mmol/L (22-29) 01/30/20 14:18 BUN 15 mg/dL (8.4-25.7) 01/30/20 14:18 Creatinine 1.09 mg/dL (0.7-1.3) 01/30/20 14:18 Glucose 117 mg/dL (70-105) H 01/30/20 14:18 Calcium 8.8 mg/dL (7.8-10.44) 01/30/20 14:18 Total Bilirubin 0.3 mg/dL (0.2-1.2) 01/30/20 14:18 AST 89 U/L (5-34) H 01/30/20 14:18 ALT 126 U/L (8-55) H 01/30/20 14:18 Alkaline Phosphatase 72 U/L (40-110) 01/30/20 14:18 CK-MB (CK-2) 30.0 ng/mL (0-6.6) H* 01/30/20 14:18 Serum Total Protein 6.9 g/dL (6.0-8.3) 01/30/20 14:18 Albumin 3.6 g/dL (3.5-5.0) 01/30/20 14:18 - EKG Interpretation EKG: NSR, twave inversion AVL/V2 - Radiology Interpretation Chest x-ray Status: image reviewed by me, report reviewed by me Additional comment: Mild cardiomegaly CT scan - head Status: image reviewed by me, report reviewed by me Additional comment: no acute intracranial abnormalities FMR H&P: A/P - Problem List (1) TIA (transient ischemic attack) Current Visit: Yes Status: Acute Code(s): G45.9 - TRANSIENT CEREBRAL ISCHEMIC ATTACK, UNSPECIFIED (2) NSTEMI (non-ST elevated myocardial infarction) Current Visit: Yes Status: Acute Code(s): I21.4 - NON-ST ELEVATION (NSTEMI) MYOCARDIAL INFARCTION (3) Esophageal ulcer without bleeding Current Visit: No Status: Acute Code(s): K22.10 - ULCER OF ESOPHAGUS WITHOUT BLEEDING (4) HTN (hypertension) Current Visit: No Status: Acute Code(s): I10 - ESSENTIAL (PRIMARY) HYPERTENSION (5) Hepatitis C Current Visit: No Status: Acute Code(s): B19.20 - UNSPECIFIED VIRAL HEPATITIS C WITHOUT HEPATIC COMA (6) History of CVA (cerebrovascular accident) Current Visit: No Status: Acute Code(s): Z86.73 - PRSNL HX OF TIA (TIA), AND CEREB INFRC W/O RESID DEFICITS (7) Normocytic anemia Current Visit: No Status: Acute Code(s): D64.9 - ANEMIA, UNSPECIFIED - Plan Pt is a 59 yo male here for: # NSTEMI - trend trops - lovenox 1mg/kg bid - repeat EKG if pt has chest pain - consult cards in AM, discussed with salesperson stereo equipment physician - lipid panel, a1c pending - NPO midnight # TIA on hx of CVA Residual L sided sensory deficits from prior CVA. R sided facial numbness resolved. - continue plavix, hold asa - MRI, echo in am - CTA head/neck pending heart workup - swallow study # HLD - continue home meds # HTN - continue home meds # Chronic Hep C - needs outpt follow up # Esophageal Ulcers - protonix bid Diet: HH, NPO midnight Fluids: LR 120 mls/hr VTE: Lovenox Code: Full Dispo: admit to inpt neuro FMR H&P: Upper Level - Plan Date/Time: 01/30/20 1702 IAlejandra DO, have evaluated this patient and agree with findings/plan as outlined by sport intern resident. Pertinent changes/additions are listed here. Pt is a 59 yo M with PMH of CVA and HTN presenting for acute onset R facial numbness and slurred speech at about 1200. Last known normal unk. Since arrival, numbness has resolved. Otherwise, denies CP, weakness. VS: BP 114/80, P75, O2 96% RA PE: Constitutional: NAD, awake, alert and oriented, well developed HEENT: normocephalic and atraumatic, R sided gaze, EOM impaired (from prior stroke), moist MM Neck: supple, no LAD Chest: no-tender to palpation, no lesions Heart: RRR, normal S1/S2, no murmurs/rubs/gallops, pulses present, no edema Lungs: CTAB, no respiratory distress, good air movement Abdomen: soft, non-tender, bowel sounds present, no masses/distention Musculoskeletal: normal structure Neurological: L sided decreased sensation in UE and LE, extremities 5/5 Skin: no rash/lesions, good turgor Heme/Lymphatic: no unusual bruising or bleeding Psychiatric: normal mood and affect Pertinent Labs/Imaging: H/H 9.0, 26.5 CKMB: 30, Trop 2.159 AST 89, ALT 126 A/P: CVA vs TIA: -sensation sx seem to be resolved however speech continues to be somewhat slurred -MRI, echo, and tele monitoring ordered -Allow for permissive HTN although currently BP 110 systolic -continue plavix and high intensity statin -PT/OT/Speech -FLP, A1c to risk stratify -NPO pending bedside swallow NSTEMI: -s/p th lovenox in ED, continue -consult cardiology tomorrow -trop 2, trend -EKG wnl, no active chest pain, could be 2/2 demand however does have significant risk factors Hyperglycemia: -unsure of any hx of DM, will continue to trend Normocytic Anemia: -Hgb 9.0, improved from last hospital stay -hx of esophageal ulcer 01/2020, will give protonix daily Hx of CVA: -residual EOM deficit, L sided sensation deficit Chronic Hep C, untreated: -will need outpt f/u HTN: -hold home meds to allow for permissive HTN. Dispo: place in inpatient, stable, LOS likely>48h DVT PPx: Th lovenox GI PPx: Protonix Addendum - Attending - Attending Attestation Date/Time: 01/31/20 7771 I personally evaluated the patient and discussed the management with Dr. Preciado /Mikie. I agree with the History, Examination, Assessment and Plan documented above with any addition or exceptions noted below. See my event note
[2020-01-30] MEDS ORDERED: hydrALAZINE 20 MG/ML VIAL SLOW IVP PRN (19:17)
[2020-01-30] MEDS ORDERED: Ondansetron PF 4 MG/2 ML Vial IVP PRN (19:17)
[2020-01-30] MEDS ORDERED: Labetalol HCl 100 MG/20 ML VIAL SLOW IVP PRN (19:17)
[2020-01-30 19:34] LABS: Hemoglobin A1c 5.2 % (4.0-6.0)
[2020-01-30 19:53] VITALS: BMI 22.3
[2020-01-30 20:23] LABS: Troponin I 3.147 ng/mL (< 0.028)
[2020-01-30] MEDS: Melatonin 3 MG TAB PO PRN (22:46)
[2020-01-30] MEDS: Atorvastatin Calcium 40 MG TAB PO SCH (22:46)
[2020-01-30] MEDS: Lactated Ringer's 1,000 ML IV SCH (22:47)
[2020-01-30] MEDS: Acetaminophen 325 MG TAB PO PRN (23:35)
[2020-01-30 23:42] LABS: Troponin I 3.398 ng/mL (< 0.028)
[2020-01-31 04:50] LABS: ALT (SGPT) 147 U/L (8-55); AST (SGOT) 103 U/L (5-34); Albumin 3.1 g/dL (3.5-5.0); Alkaline Phosphatase 63 U/L (40-110); Anion Gap 10 mmol/L (10-20); BUN (Urea Nitrogen) 16 mg/dL (8.4-25.7); Bilirubin, Total 0.3 mg/dL (0.2-1.2); Calc. Creatinine Clearance 78 mL/min (70-130); Calcium 8.3 mg/dL (7.8-10.44); Carbon Dioxide 26 mmol/L (22-29); Chloride 105 mmol/L (98-107); Cholesterol 88 mg/dl (< 200 Desired); Estimated GFR-MDRD 70; Globulin 2.8 g/dL (2.4-3.5); Glucose 172 mg/dL (70-105); HDL Cholesterol 22 mg/dL (>60 Neg Risk); LDL Cholesterol, Calculated 49 mg/dL; Potassium 3.7 mmol/L (3.5-5.1); Protein, Total 5.9 g/dL (6.0-8.3); Sodium 137 mmol/L (136-145); Triglycerides 85 mg/dL (Less than 150)
[2020-01-31 04:59] LABS: Troponin I 3.859 ng/mL (< 0.028)
[2020-01-31 06:03] LABS: Band 11 % (5-11); Eosinophils 4 % (0-10); Hemoglobin 7.9 g/dL (14.0-18.0); Lymphocytes 27 % (21-51); MDiff Complete? YES; Mean Corpuscular HGB CONC 34.8 g/dL (32.0-36.0); Mean Platelet Volume 7.9 fL (7.4-10.4); Metamyelocyte 1 % (0-0); Monocytes 5 % (0-10); Myelocyte 2 % (0-0); Neutrophil 50 % (42-75); Platelet Count 275 thou/uL (130-400); RBC Distribution Width 14.7 % (11.5-14.5); Red Blood Cell (RBC) Count 2.54 mill/uL (4.70-6.10); White Blood Cell (WBC) Count 6.6 thou/uL (4.8-10.8)
[2020-01-31] MEDS: Acetaminophen 325 MG TAB PO PRN ×2 (07:13→21:14)
[2020-01-31] MEDS: Lactated Ringer's 1,000 ML IV SCH ×2 (07:13→21:13)
[2020-01-31 08:16] LABS: Troponin I 4.726 ng/mL (< 0.028)
--- NOTE | 2020-01-31 08:58 | PDOC.FM ---
- Subjective Subjective: Pt had an episode of chest discomfort overnight. EKG was NSR. He is doing well otherwise this morning. He has no symptoms of acute stroke this am. He has not eaten since yesterday.Denies LE edema. - Objective Vital Signs & Weight: Vital Signs (12 hours) Temp Pulse Resp BP BP Pulse Ox 01/31/20 07:30 97 01/31/20 07:19 98.6 F 68 20 137/70 97 01/31/20 05:48 98.2 F 70 16 133/65 96 01/31/20 03:38 98.3 F 59 L 20 119/54 L 99 01/30/20 22:42 98.5 F 64 20 117/65 98 Weight Weight 74.616 kg Result Diagrams: 01/31/20 03:55 01/31/20 03:55 EKG Reviewed by me: Yes (NSR) Phys Exam - Physical Examination Constitutional: NAD HEENT: PERRLA, moist MMs Neck: no JVD, full ROM Respiratory: no wheezing, clear to auscultation bilateral Cardiovascular: RRR, no significant murmur Gastrointestinal: soft, non-tender, positive bowel sounds Musculoskeletal: no edema, pulses present L sided facial numbness, no motor deficits Psychiatric: normal affect, A&O x 3 Skin: no rash, cap refill <2 seconds Dx/Plan (1) TIA (transient ischemic attack) Code(s): G45.9 - TRANSIENT CEREBRAL ISCHEMIC ATTACK, UNSPECIFIED Status: Acute (2) NSTEMI (non-ST elevated myocardial infarction) Code(s): I21.4 - NON-ST ELEVATION (NSTEMI) MYOCARDIAL INFARCTION Status: Acute (3) Esophageal ulcer without bleeding Code(s): K22.10 - ULCER OF ESOPHAGUS WITHOUT BLEEDING Status: Acute (4) HTN (hypertension) Code(s): I10 - ESSENTIAL (PRIMARY) HYPERTENSION Status: Acute (5) Hepatitis C Code(s): B19.20 - UNSPECIFIED VIRAL HEPATITIS C WITHOUT HEPATIC COMA Status: Acute (6) History of CVA (cerebrovascular accident) Code(s): Z86.73 - PRSNL HX OF TIA (TIA), AND CEREB INFRC W/O RESID DEFICITS Status: Acute (7) Normocytic anemia Code(s): D64.9 - ANEMIA, UNSPECIFIED Status: Acute - Plan Plan: Pt is a 59 yo male here for: # NSTEMI - trops upward trending - lovenox 1mg/kg bid - held - repeat EKG revealed NSR this am; no events on tele - cards consulted; will see this am - held lovenox this morning - lipid panel pending, a1c WNL # TIA on hx of CVA Residual L sided sensory deficits from prior CVA. R sided facial numbness resolved. - continue plavix, hold asa - MRI, echo in am - CTA head/neck pending heart workup # HLD - continue home meds # HTN - continue home meds # Chronic Hep C - needs outpt follow up # Esophageal Ulcers - protonix bid # Normocytic Anemia - stable, 7.9 today; discharged at 7.9 a few days ago Diet: HH, NPO midnight Fluids: LR 120 mls/hr VTE: Lovenox held Code: Full Dispo: admit to inpt neuro Addendum - Attending - Attending Attestation Date/Time: 01/31/20 3622 I personally evaluated the patient and discussed the management with Dr. Preciado. I agree with the History, Examination, Assessment and Plan documented above with any addition or exceptions noted below. Cath showed 3 vessel disease. Tx 1 u PRBCs for goal H&H 8-10. Echo showed normal EF. Awaiting cards recs.
[2020-01-31] MEDS ORDERED: Lisinopril 5 MG TAB PO SCH (09:00)
[2020-01-31] MEDS ORDERED: Iopamidol 370 76% 100 ML VIAL ONE (09:55)
[2020-01-31] MEDS: Aspirin 81 mg Enteric Coated Tablet PO SCH (09:56)
[2020-01-31] MEDS: Clopidogrel Bisulfate 75 MG TAB PO SCH (09:56)
[2020-01-31] MEDS: Multivitamin W/ Minerals 1 TAB PO SCH (09:57)
--- NOTE | 2020-01-31 11:03 | MRI ---
MRI BRAIN WITHOUT CONTRAST: Date: 01/31/2020 HISTORY: Right arm numbness, right facial droop, right facial numbness. CORRELATION: CT scan from previous day. FINDINGS: There are small, old infarctions in the right cerebellar hemisphere and the medial right posterior pa rietooccipital lobe. There are foci of T2 prolongation in the periventricular white matter consistent with chronic small vessel ischemic disease. No restricted diffusion is identified. No evidence of ac nikolski infarct, hemorrhage, midline shift, or abnormal extra-axial fluid collections are seen. The ventr icular size is appropriate and the basilar cisterns are patent. IMPRESSION: No evidence of acute intracranial process. POS: [facility]
[2020-01-31] MEDS ORDERED: Heparin 10,000 UNITS/1 ML VIAL ONE (11:17)
[2020-01-31] MEDS ORDERED: Fentanyl 100 MCG/2 ML VIAL ONE (11:55)
[2020-01-31] MEDS ORDERED: Midazolam HCl 2 mg/2 ml Vial ONE (11:55)
[2020-01-31] MEDS ORDERED: Protamine Sulfate 50 MG/5 ML VIAL ONE (12:17)
[2020-01-31] MEDS ORDERED: Nitroglycerin 0.4 MG TAB (25 Tab Bottle) SL PRN (12:45)
[2020-01-31] MEDS ORDERED: Sodium Chloride 0.9% 1,000 ML IV SCH (12:45)
[2020-01-31] MEDS ORDERED: Sodium Chloride 0.9% 200 ML IV PRN (12:45)
[2020-01-31] MEDS ORDERED: Acetaminophen/Codeine 30-300mg Tablet PO PRN ×2 (12:45)
--- NOTE | 2020-01-31 16:14 | CON ---
DATE OF CONSULTATION: HISTORY OF PRESENT ILLNESS: Linda Harvey is a 59-year-old white male, admitted with right-sided numbness and some right arm pain. He apparently was healthy until 10/2019, when he had developed several brainstem strokes according to his niece who gives most of the history. He apparently was in a skilled nursing for time and rehab after that. He lived in the [place] area, but has since moved here to have the help of his niece. He has chronic left-sided paresthesias and is on baby aspirin and Plavix daily. Soon after arrival here, he was hospitalized on 01/26 with complaint of diarrhea. He was anemic with hemoglobin down to 6.8, and received a blood transfusion. He underwent EGD, which revealed 2 shallow esophageal ulcers at the GE junction, but no active bleeding. He was supposed to be taking Protonix because he was found to have an esophageal ulcer while still in [place], but he has not been taking it. He was placed back on proton pump inhibitor. It was felt by Dr. Bragg that he did not have a high risk for rebleeding if he took his proton pump inhibitor. It is difficult to tell from the previous hospital record, but I doubt that he was receiving his aspirin and Plavix due to his gastrointestinal bleeding during this last admission. He was discharged and then came back later the afternoon of , complaining of right arm numbness with some discomfort. His niece says that he had drooping of the right side of his face. He did not have any chest discomfort. He did have some shortness of breath. Cardiac enzymes were obtained, which have been abnormal. His right-sided paresthesias and right arm pain resolved. PAST MEDICAL HISTORY: 1. Hypertension. 2. Hypercholesterolemia. 3. No history of diabetes. 4. History of brainstem stroke with residual left-sided paresthesias. MEDICATIONS: 1. Aspirin 81 daily. 2. Plavix 75 mg daily. 3. Atorvastatin 80 mg daily. 4. Protonix 40 b.i.d., which he has not been taking. 5. Multivitamin daily. 6. Lisinopril 5 mg daily. 7. Carafate 1 g q.i.d. ALLERGIES: NONE. OPERATIONS: Left shoulder surgery. SOCIAL HISTORY: He smoked 1 pack per day, but stopped when he has his initial stroke in 10/2019. He stopped drinking many years ago. Apparently, he has history of drug abuse. FAMILY HISTORY: Both his mother and father of myocardial infarctions. REVIEW OF SYSTEMS: A 12-point review of systems is otherwise unremarkable. PHYSICAL EXAMINATION: VITAL SIGNS: Blood pressure 137/70 and pulse of 68. HEENT: PERRL. NECK: Supple. CHEST: Clear. CARDIAC: S1 and S2 are normal without any S3, S4, or murmurs. Carotid upstroke is normal without bruits. ABDOMEN: Normal bowel sounds without tenderness or organomegaly. EXTREMITIES: No clubbing, cyanosis, or edema. NEUROLOGIC: The patient has some left facial numbness. Good motor strength. SKIN: Warm and dry. LABORATORY DATA: EKG revealed normal sinus rhythm and is unremarkable. Hemoglobin 7.9, hematocrit 22.6, white count 6600, and platelets 275,000. INR 1.0. Sodium 137, potassium 3.7, chloride 105, carbon dioxide 26, BUN 16, creatinine 1.08, and glucose 172. AST 103 and ALT 147. Troponin I is up to 4.726. Cholesterol 88, triglycerides 85, LDL 49, and HDL 22. CK-MB 30.0. IMPRESSION: 1. Axb-[id number] myocardial infarction, probably type 1. 2. History of brainstem stroke in 10/2019, resulting in left-sided paresthesias. 3. Transient ischemic attack, that prompted this admission. Even though I cannot tell for sure and looking through the record, I would imagine that his aspirin and Plavix were held during his previous admission. 4. Esophageal ulcers, noncompliance with Protonix. 5. Hypertension. 6. Former smoker. 7. Hypercholesterolemia. 8. Positive family history. PLAN: Situation discussed with the patient and his niece. It was recommended that he undergo cardiac catheterization. Risks were discussed including , myocardial infarction, dye reaction, vascular injury, CVA, transfusion, limb loss, renal loss, etc. Also risk of intervention with PTCA and stent placement discussed including , myocardial infarction, emergent CABG, restenosis, stent thrombosis, vessel perforation, etc. He is on Plavix and low-dose aspirin chronically. He just has undergone EGD and is felt by GI that he is at low risk for rebleeding. Therefore, a drug-eluting stent will be placed if needed. Job ID: [id number] [facility]
[2020-01-31 17:20] LABS: Hemoglobin 9.2 g/dL (14.0-18.0)
[2020-01-31] MEDS ORDERED: Enoxaparin Sodium 80 MG/0.8 ML SYRINGE SC SCH (21:00)
[2020-01-31] MEDS: Atorvastatin Calcium 40 MG TAB PO SCH (21:13)
[2020-01-31] MEDS: Melatonin 3 MG TAB PO PRN (21:14)
[2020-02-01 05:21] LABS: ALT (SGPT) 198 U/L (8-55); AST (SGOT) 115 U/L (5-34); Albumin 3.1 g/dL (3.5-5.0); Alkaline Phosphatase 73 U/L (40-110); Anion Gap 10 mmol/L (10-20); BUN (Urea Nitrogen) 10 mg/dL (8.4-25.7); Bilirubin, Total 0.4 mg/dL (0.2-1.2); Calc. Creatinine Clearance 92 mL/min (70-130); Calcium 8.4 mg/dL (7.8-10.44); Carbon Dioxide 27 mmol/L (22-29); Chloride 105 mmol/L (98-107); Estimated GFR-MDRD 85; Globulin 3.2 g/dL (2.4-3.5); Glucose 141 mg/dL (70-105); Potassium 3.9 mmol/L (3.5-5.1); Protein, Total 6.3 g/dL (6.0-8.3); Sodium 138 mmol/L (136-145)
[2020-02-01] MEDS: Lactated Ringer's 1,000 ML IV SCH ×2 (05:43→18:33)
--- NOTE | 2020-02-01 06:17 | PDOC.FM ---
- Subjective Subjective: Pt is doing well today. He had a cath yesterday with 3 vessel disease. He denies chest pain at this time. He does have mild pain in his groin. He denies bleeding. - Objective Vital Signs & Weight: Vital Signs (12 hours) Temp Pulse Resp BP Pulse Ox 02/01/20 03:59 98.3 F 71 18 128/62 96 01/31/20 23:58 98.1 F 67 18 109/61 98 01/31/20 22:42 97 01/31/20 21:15 96 01/31/20 20:00 98.7 F 70 16 118/67 96 Weight Weight 74.616 kg Most Recent Monitor Data Heart Rate from ECG 65 NIBP 126/66 Respiration from ECG 20 I&O: 01/30/20 01/31/20 02/01/20 06:59 06:59 06:59 Intake Total 300 Output Total 950 Balance -650 Result Diagrams: 02/01/20 04:49 02/01/20 04:50 EKG Reviewed by me: Yes (No events overnight) Phys Exam - Physical Examination Constitutional: NAD HEENT: PERRLA, moist MMs Neck: no JVD, full ROM Respiratory: no wheezing, clear to auscultation bilateral Cardiovascular: RRR, no significant murmur Gastrointestinal: soft, non-tender, positive bowel sounds Musculoskeletal: no edema, pulses present Neurological: non-focal, moves all 4 limbs L sided paresthesia Psychiatric: normal affect, A&O x 3 Skin: no rash, cap refill <2 seconds Dx/Plan (1) TIA (transient ischemic attack) Code(s): G45.9 - TRANSIENT CEREBRAL ISCHEMIC ATTACK, UNSPECIFIED Status: Acute (2) NSTEMI (non-ST elevated myocardial infarction) Code(s): I21.4 - NON-ST ELEVATION (NSTEMI) MYOCARDIAL INFARCTION Status: Acute (3) Esophageal ulcer without bleeding Code(s): K22.10 - ULCER OF ESOPHAGUS WITHOUT BLEEDING Status: Acute (4) HTN (hypertension) Code(s): I10 - ESSENTIAL (PRIMARY) HYPERTENSION Status: Acute (5) Hepatitis C Code(s): B19.20 - UNSPECIFIED VIRAL HEPATITIS C WITHOUT HEPATIC COMA Status: Acute (6) History of CVA (cerebrovascular accident) Code(s): Z86.73 - PRSNL HX OF TIA (TIA), AND CEREB INFRC W/O RESID DEFICITS Status: Acute (7) Normocytic anemia Code(s): D64.9 - ANEMIA, UNSPECIFIED Status: Acute - Plan Plan: Pt is a 59 yo male here for: # NSTEMI - cath done with 3 vessel disease - does not appear have had a stent placed, pending rec's - continue ASA, plavix # TIA on hx of CVA Residual L sided sensory deficits from prior CVA. R sided facial numbness resolved. - continue plavix, asa - EF WNL, no evidence of thrombus or a-fib - CTA head/neck pending heart workup # HLD - continue home meds # HTN - continue home meds # Chronic Hep C - needs outpt follow up # Esophageal Ulcers - protonix bid # Normocytic Anemia - stable Diet: HH Fluids: LR 120 mls/hr VTE: Lovenox held Code: Full Dispo: admit to inpt neuro Addendum - Attending - Attending Attestation Date/Time: 02/01/20 1050 I personally evaluated the patient and discussed the management with Dr. Preciado. I agree with the History, Examination, Assessment and Plan documented above with any addition or exceptions noted below. Will restart lisinopril 2.5 mg qd. Given labile BP. Will hold off beta popeye for now and recommend metoprolol or coreg outpatient. d/c home on asa and plavix per cards
[2020-02-01 06:28] LABS: Hemoglobin 9.2 g/dL (14.0-18.0); Mean Corpuscular HGB CONC 33.9 g/dL (32.0-36.0); Mean Corpuscular Hemoglobin 30.5 pg (27.0-31.0); Mean Corpuscular Volume 89.9 fL (78.0-98.0); Mean Platelet Volume 7.7 fL (7.4-10.4); Platelet Count 289 thou/uL (130-400); RBC Distribution Width 15.2 % (11.5-14.5); Red Blood Cell (RBC) Count 3.02 mill/uL (4.70-6.10); White Blood Cell (WBC) Count 7.1 thou/uL (4.8-10.8)
[2020-02-01 06:40] LABS: Band 3 % (5-11); Eosinophils 5 % (0-10); Lymphocytes 23 % (21-51); MDiff Complete? YES; Metamyelocyte 1 % (0-0); Monocytes 12 % (0-10); Neutrophil 56 % (42-75); Polychromasia SLIGHT = 2-3 cells (100X) (0-2/hpf)
[2020-02-01] MEDS: Aspirin 81 mg Enteric Coated Tablet PO SCH (08:34)
[2020-02-01] MEDS: Clopidogrel Bisulfate 75 MG TAB PO SCH (08:34)
[2020-02-01] MEDS: Multivitamin W/ Minerals 1 TAB PO SCH (08:36)
--- NOTE | 2020-02-01 12:07 | EKG ---
Test Reason : Blood Pressure : / mmHG Vent. Rate : 065 BPM Atrial Rate : 065 BPM P-R Int : 148 ms QRS Dur : 090 ms QT Int : 442 ms P-R-T Axes : 068 030 074 degrees QTc Int : 459 ms Normal sinus rhythm Nonspecific ST abnormality Abnormal ECG Confirmed by NAILA COOPER DO ([id number]), department editor NAYELY BELL ([id number]) on 02/01/2020 12:07:01 PM Referred By: Confirmed By:NAILA COOPER DO
[2020-02-01 16:34] VITALS: BP 128/72; TEMP 98.8
[2020-02-01] MEDS ORDERED: Isosorbide Mononitrate (ER) 30 MG TAB PO SCH (17:15)
[2020-02-02] MEDS ORDERED: Isosorbide Mononitrate (ER) 30 MG TAB PO SCH (09:00)
--- NOTE | 2020-02-03 13:49 | DIS ---
DATE OF ADMISSION: 01/30/2020 DATE OF DISCHARGE: 02/01/2020 RESIDENT: Luis Miguel Preciado DO ADMITTING ATTENDING: Pérez Hernandez MD DISCHARGE ATTENDING: Pérez Hernandez MD CONSULTS: Dr. Mariano Hernandez, Cardiology. PROCEDURES: 1. Echocardiogram on 01/31/2020, revealed an EF estimated at 50% to 55%. The left atrium is mildly dilated. Mild mitral regurgitation is present. Trace tricuspid regurg. 2. Brain MRI on 01/31/2020, revealed no evidence of acute intracranial process. 3. Cardiac cath on 02/01/2020, revealed three-vessel disease with fairly patent LAD per Cardiology. PRIMARY DIAGNOSES: 1. Non-ST elevation myocardial infarction. 2. Transient ischemic attack. SECONDARY DIAGNOSES: 1. History of cerebrovascular accident. 2. Normocytic anemia. 3. Chronic hep C without treatment. 4. Hypertension. 5. Esophageal ulcer without bleeding. HISTORY OF PRESENT ILLNESS/HOSPITAL COURSE: Linda Harvey is a 59-year-old gentleman who was just recently discharged and found to have esophageal ulcer without bleeding. At this time, he was discharged with Plavix and aspirin. On this hospitalization. He has was found to have was likely a TIA on top of a history of CVA. The symptoms are what brought him in. He had right-sided facial weakness which subsequently resolved. He does have longstanding left-sided paresthesias to his extremities anterior his face due to a prior CVA. We continued his Plavix for this. MRI did not find any new findings. We did not perform a CTA head and neck as he had just received contrast for cardiac cath. This can be done in the outpatient setting. He was subsequently found to have a troponin of 2.159, which up trended to 4.726. He was subsequently taken back for a cardiac cath, which revealed 3-vessel disease. Speaking with Dr. Hernandez, he states that his LAD is fairly patent, which led to medical management. The patient was not a good candidate for surgical intervention. His medications were optimized including discharge with statin. He does not have diabetes, A1c was 5.2. We continued his clopidogrel and restarted his aspirin. He was discharged with nitroglycerin tablets and new medication of Imdur. This can all be titrated in the outpatient setting. Of note, the patient does have elevated liver enzymes in the setting of chronic hepatitis C. He is seen by Gastroenterology for treatment. The patient has not had a colonoscopy and will require one. He does have anemia, but does not have signs of acute bleeding at this time. His EGD earlier in the month revealed no active upper GI bleed. DISCHARGE MEDICATIONS: 1. Multivitamin 1 tablet p.o. daily. 2. Clopidogrel 75 mg p.o. daily. 3. Atorvastatin 80 mg p.o. at bedtime. 4. Lisinopril 5 mg p.o. daily. 5. Protonix 40 mg p.o. b.i.d. 6. Aspirin 81 mg p.o. daily. 7. Nitroglycerin 0.4 mg sublingual q.5 minutes p.r.n. pain. 8. Imdur extended release 15 mg p.o. daily. DISCONTINUE MEDICATION: Carafate 1 g p.o. q.i.d. DISPOSITION: Stable. DISCHARGE INSTRUCTIONS: 1. Location: [facility]. 2. Diet: Heart healthy. 3. Activity: Ad ellen. 4. Followup: Follow up with Dr. Hernandez, cardiology in 2 weeks. 5. Follow up with Dr. Bryant in 1 week. Job ID: [id number]
== END 2020-02-01 18:05 | disposition home or self-care (01) | DRG 281 ==
LOC: ERS 14:14 → 2SE 16:23
PROVIDERS: ADMIT Family Medicine; ATTEND Family Medicine
PROC: 4A023N7 Measurement of Cardiac Sampling and Pressure, Left Heart, Percutaneous Approach (ICD-10-PCS; principal; 2020-01-31)
PROC: B2151ZZ Fluoroscopy of Left Heart using Low Osmolar Contrast (ICD-10-PCS; 2020-01-31)
PROC: B2111ZZ Fluoroscopy of Multiple Coronary Arteries using Low Osmolar Contrast (ICD-10-PCS; 2020-01-31)
DX: I21.4 Non-ST elevation (NSTEMI) myocardial infarction (principal); G45.9 Transient cerebral ischemic attack, unspecified; I69.354 Hemiplegia and hemiparesis following cerebral infarction affecting left non-dominant side; E78.5 Hyperlipidemia, unspecified; E78.00 Pure hypercholesterolemia, unspecified; I10 Essential (primary) hypertension; F41.9 Anxiety disorder, unspecified; K22.0 Achalasia of cardia; B18.2 Chronic viral hepatitis C; D64.9 Anemia, unspecified; R73.9 Hyperglycemia, unspecified; Z87.891 Personal history of nicotine dependence; Z79.899 Other long term (current) drug therapy; Z79.82 Long term (current) use of aspirin; Z91.14 Patient's other noncompliance with medication regimen
CPT/HCPCS: 36415; 36416; 36430; 70450; 70551; 71045; 80053; 80061; 80306; 82553; 83036; 84484; 85007; 85025; 85027; 85347; 85610; 85730; 86850; 86900; 86901; 93005; 93010; 93306; 93458; 94760; 96372; 99152; 99153; J1644; J1650; J2250; J2720; J3010; P9016; Q9967